=== PATIENT | female | born 1965 | race Caucasian/White ===

== ENCOUNTER → 2020-01-20 14:55 | Outpatient (BNVA) | payer MEDICAID, SELFPAY | PROVIDERS: Family Provider Family Medicine; Visit Provider Nurse Practitioner Psychiatric/Mental Health | DX: F31.64 Bipolar disorder, current episode mixed, severe, with psychotic features (principal); F43.12 Post-traumatic stress disorder, chronic; F41.1 Generalized anxiety disorder | CPT/HCPCS: 99214 ==

== ENCOUNTER → 2020-05-02 08:03 | Outpatient (BNVA) | payer MEDICAID, SELFPAY | PROVIDERS: Family Provider Family Medicine; Visit Provider Nurse Practitioner Psychiatric/Mental Health | DX: F31.64 Bipolar disorder, current episode mixed, severe, with psychotic features (principal); F43.12 Post-traumatic stress disorder, chronic; F41.1 Generalized anxiety disorder | CPT/HCPCS: 99213 ==

== ENCOUNTER → 2020-08-25 17:56 | Outpatient (BNVA) | payer MEDICAID, SELFPAY | PROVIDERS: Family Provider Family Medicine; Visit Provider Emergency Medicine | DX: Z20.828 Contact with and (suspected) exposure to other viral communicable diseases (principal) | CPT/HCPCS: 87635 ==

== ENCOUNTER → 2020-08-28 08:12 | Outpatient (BNVA) | payer MEDICAID, SELFPAY | PROVIDERS: Family Provider Family Medicine; Visit Provider Nurse Practitioner Psychiatric/Mental Health | DX: F31.64 Bipolar disorder, current episode mixed, severe, with psychotic features (principal); F43.12 Post-traumatic stress disorder, chronic; F41.1 Generalized anxiety disorder | CPT/HCPCS: 99213 ==

== ENCOUNTER → 2020-12-26 09:33 | Outpatient (BNVA) | payer MEDICAID, SELFPAY | PROVIDERS: Family Provider Family Medicine; Visit Provider Nurse Practitioner Psychiatric/Mental Health | DX: F31.64 Bipolar disorder, current episode mixed, severe, with psychotic features (principal); F43.12 Post-traumatic stress disorder, chronic; F41.1 Generalized anxiety disorder; Z79.899 Other long term (current) drug therapy | CPT/HCPCS: 99214 ==

== ENCOUNTER → 2021-04-24 08:08 | Outpatient (BNVA) | payer MEDICAID, SELFPAY | PROVIDERS: Family Provider Family Medicine; Visit Provider Nurse Practitioner Psychiatric/Mental Health | DX: F31.64 Bipolar disorder, current episode mixed, severe, with psychotic features (principal); F43.12 Post-traumatic stress disorder, chronic; F41.1 Generalized anxiety disorder; Z79.899 Other long term (current) drug therapy | CPT/HCPCS: 99214 ==

== ENCOUNTER 2021-07-03 10:55 | Emergency (ER) | payer MEDICAID, SELFPAY ==
--- NOTE | 2021-07-03 | CT_ITS ---
WS: [id number] CT PELVIS WITHOUT HISTORY: Bilateral hip pain. TECHNIQUE: Contiguous imaging is performed of the pelvis without contrast. Coronal and sagittal refor mats are reviewed. All CT scans at [facility] use at least one of these dose optimization techniques: automated exposure control; mA and/or kV adjustment per patient size (includes targeted exams where dose is matched to clinical indication); or iterative reconstruction. DLP: 1013.21 mGy.cm COMPARISON: None available. No fractures or osseous destruction of the pelvis. Partial osseous fusion across the posterior LEFT S I joint. No significant erosions along the SI joints. Very mild narrowing of the hip joints. No muscle atrophy. The appendix is visualized and normal. Urinary bladder is well distended. CT/CT pelvis [facility] [id number] IMPRESSION: 1. No significant bone abnormalities or acute fractures within the pelvis. 2. Very mild bilateral hip joint arthritis. 3. No free fluid or adenopathy.
[2021-07-03 11:20] VITALS: BP 126/83; PULSE 69; RESP 18; TEMP 37.3; O2SAT 93; BMI 36.9
--- NOTE | 2021-07-03 12:50 | CT_ITS ---
WS: [id number] CT LUMBAR SPINE, noncontrast. HISTORY: incontinence TECHNIQUE: Contiguous 2.5 mm axial imaging are performed. Sagittal and coronal reformats are submitte d and reviewed. All CT scans at [facility] use at least one of these dose optimization te chniques: automated exposure control; mA and/or kV adjustment per patient size (includes targeted exa ms where dose is matched to clinical indication); or iterative reconstruction. IV contrast: None DLP: 2568.51 mGy.cm COMPARISON: 03/10/2012 Mild curvature lumbar spine. Posterior alignment is normal. Disc spaces and vertebral body heights ar e maintained. No fractures. Endplate osteophytes and facet joint arthritis at all levels. L1-2: Mild annular disc bulging with a shallow LEFT foraminal disc protrusion. No stenosis. Mild bila teral facet arthritis. L2-3: Diffuse annular disc bulging with osteophyte and disc protrusion in the LEFT foramen with very minimal contact on the L2 nerve root. Very mild narrowing the central canal. L3-4: Diffuse asymmetric disc bulging extending greatest to the RIGHT. Osteophyte and disc protrusion in the RIGHT foramen causing moderate stenosis and mild contact on the L3 nerve root. Mild flattenin g of the thecal sac with mild central and RIGHT subarticular stenosis. Mild bilateral facet joint art hritis. L4-5: Diffuse osteophytic ridging with annular disc bulging and moderate facet joint arthritis. Moder ate central stenosis. Disc and osteophyte encroaching into the RIGHT foramen causing moderate RIGHT s ubarticular and RIGHT foraminal stenosis. Bilateral lateral recess stenosis due to facet arthritis. L5-S1: No significant stenosis. Partial fusion across the posterior LEFT SI joint. No osseous destruction. CT/CT lumbar spine wo con* [id number] IMPRESSION: 1. Mild progression of stenoses and disc osteophyte disease since 2011. 2. Moderate central, RIGHT subarticular and RIGHT foraminal stenosis at L4-5 d ue to disc and osteophyte disease. Additional bilateral lateral recess stenosis due to facet joint encroachment. 3. Moderate RIGHT foraminal stenosis at L3-4 with disc osteophyte contact on t he L3 nerve root. Mild central and RIGHT subarticular recess stenosis at L3-4. 4. Mild central and LEFT foraminal stenosis at L2-3.
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
[2021-07-03 14:34] VITALS: BP 131/82; PULSE 65; RESP 18; O2SAT 94
[2021-07-03] MEDS: dexamethasone 10 mg/mL INJ IM (15:04)
[2021-07-03] MEDS: orphenadrine 30 mg/mL Inj 2 mL 60 MG IM (15:05)
[2021-07-03 15:44] VITALS: BP 131/82; PULSE 65; RESP 18; TEMP 37.3; O2SAT 94
--- NOTE | 2021-07-04 13:00 | DCPLANNER ---
assistant purchasing manager had message to get patient established with Dr. Bashir for primary care. assistant purchasing manager called [facility], spoke with Maddison, gave clinic patients information. A follow up appointment was scheduled for Saturday, July 24, 2021 at 10:[address] Bashir. assistant purchasing manager spoke with patient and gave her the appointment information. Patient stated that she would attend the appointment.
--- NOTE | 2021-07-25 13:40 | DCPLANNER ---
Patient had a follow up appointment scheduled for 07.24.[address] Bashir - appointment was cancelled.
== END 2021-07-03 15:46 | disposition home or self-care (01) ==
PROVIDERS: Emergency Provider Nurse Practitioner Family
DX: M54.16 Radiculopathy, lumbar region (principal)
CPT/HCPCS: 72131; 72192; 96372; 99283; J1100; J2360

== ENCOUNTER → 2021-08-22 07:41 | Outpatient (BNVA) | payer MEDICAID, SELFPAY | PROVIDERS: Visit Provider Nurse Practitioner Psychiatric/Mental Health | DX: F31.64 Bipolar disorder, current episode mixed, severe, with psychotic features (principal); F43.12 Post-traumatic stress disorder, chronic; F41.1 Generalized anxiety disorder; Z79.899 Other long term (current) drug therapy | CPT/HCPCS: 99214 ==

== ENCOUNTER → 2021-12-25 08:15 | Outpatient (BNVA) | payer MEDICAID, SELFPAY | PROVIDERS: Visit Provider Nurse Practitioner Psychiatric/Mental Health | DX: F31.64 Bipolar disorder, current episode mixed, severe, with psychotic features (principal); F43.12 Post-traumatic stress disorder, chronic; F41.1 Generalized anxiety disorder | CPT/HCPCS: 99214 ==

== ENCOUNTER → 2022-04-23 07:25 | Outpatient (BNVA) | payer MEDICAID, SELFPAY | PROVIDERS: Visit Provider Nurse Practitioner Psychiatric/Mental Health | DX: F31.64 Bipolar disorder, current episode mixed, severe, with psychotic features (principal); F43.12 Post-traumatic stress disorder, chronic; F41.1 Generalized anxiety disorder; Z79.899 Other long term (current) drug therapy | CPT/HCPCS: 99214 ==

== ENCOUNTER → 2022-09-12 11:58 | Outpatient (BNVA) | payer MEDICAID, SELFPAY | PROVIDERS: Visit Provider Nurse Practitioner Psychiatric/Mental Health | DX: F31.64 Bipolar disorder, current episode mixed, severe, with psychotic features (principal); F43.12 Post-traumatic stress disorder, chronic; F41.1 Generalized anxiety disorder; Z79.899 Other long term (current) drug therapy | CPT/HCPCS: 80053; 80164 ==

== ENCOUNTER → 2024-04-21 15:45 | Outpatient (BNVA) | payer OTHER, SELFPAY | PROVIDERS: Visit Provider Nurse Practitioner Psychiatric/Mental Health | DX: Z79.899 Other long term (current) drug therapy (principal); F31.64 Bipolar disorder, current episode mixed, severe, with psychotic features; F43.12 Post-traumatic stress disorder, chronic; F41.1 Generalized anxiety disorder | CPT/HCPCS: 80053; 80061; 80164; 83036 ==

== ENCOUNTER 2024-04-28 10:43 | Emergency (ER) | payer MEDICAID, SELFPAY ==
[2024-04-28 10:48] VITALS: BP 143/90; PULSE 71; TEMP 36.9; O2SAT 95; BMI 36.0
--- NOTE | 2024-04-28 11:16 | ED_ITS ---
HPI - Skin/Abscess/Foreign Bdy General: Chief complaint: Skin/Abscess/Foreign Body Stated complaint: possible scabies Time Seen by Provider: 04/28/24 10:55 Source: patient Mode of arrival: ambulatory Limitations: no limitations History of Present Illness: 58-year-old female states she has had a rash to her hands and feet and going up her legs here with nonvisual same states she believes she has been exposed to scabies she denies any known bedbugs denies any fevers rashes pruritic Associated symptoms: Deny chills, fever(s), nausea or vomiting Review of Systems Const: Denies: fever(s), chills, body aches or change in appetite Eyes: Denies: blurry vision ENMT: Denies: throat pain or dental pain Card: Denies: chest pain Resp: Denies: dyspnea GI: Denies: abdominal pain, nausea, vomiting or diarrhea Musc: Denies: neck pain or back pain Skin/Breast: Reports: rash Neuro: Denies: headache(s) PFSH ED PFSH: Medical History Psychiatric care Generalized anxiety disorder Chronic post-traumatic stress disorder Bipolar I, most recent episode mixed, severe with psychotic behavior With Somatic delusions of physical health Physical Exam Const: COMMON NORMALS: no acute distress, patient oriented x3 and healthy appearing HENMT: COMMON NORMALS: normocephalic and atraumatic HEAD & SCALP: normocephalic and atraumatic Eye: COMMON NORMALS: conjunctivae normal CONJUNCTIVA: Yes conjunctivae normal Neck/C-Spine: COMMON NORMALS: full ROM and supple Chest: COMMONS NORMALS: normal inspection of the chest Resp: COMMON NORMALS: normal respiratory effort Extremity: COMMON NORMALS: full ROM Neuro: COMMON NORMALS: patient oriented x3, moves all extremities and no focal motor deficits Psych: COMMON NORMALS: mental status grossly normal, Normal thought process present and cooperative THOUGHT PROCESS: Normal thought process present Skin: COMMON NORMALS: no wounds NARRATIVE SKIN EXAM: Rash noted to hands and feet likely scabies Course Vital Signs: Vital signs: Vital Signs Temperature 98.5 F 04/28/24 10:48 Pulse Rate 71 04/28/24 10:48 Blood Pressure 143/90 04/28/24 10:48 Pulse Oximetry 95 04/28/24 10:48 Oxygen Delivery Me thod Room Air 04/28/24 10:48 MDM - Skin/Abscess/Foreign Bdy Medicial Decision Making Patient presents with likely scabies we will treat her with permethrin she stable for discharge follow-up PCP return if worsening No radiology studies performed this visit Discharge Plan Discharge Patient Disposition: Home Clinical Impression: Scabies Condition: Stable Prescriptions: New Elimite 5 % cream 1 applic topical Q14D Qty: 60 0RF Rx Instructions: apply second treatment 14 days after first treatment if live lice remain No Action trazodone 100 mg tablet 100 mg PO BEDTIME PRN (Reason: sleep) Qty: 90 3RF Rx Instructions: Take one tablet at bedtime as needed for sleep propranolol 40 mg tablet 40 mg PO BID Qty: 180 3RF Rx Instructions: Take one tablet twice per day duloxetine [Cymbalta] 60 mg capsule,delayed release(DR/EC) 120 mg PO .morning Qty: 180 3RF Rx Instructions: Take two capsules every morning divalproex [Depakote ER] 500 mg tablet extended release 24 hr 500 mg PO QAM Qty: 90 3RF Rx Instructions: Take one tablet every morning diazepam [Valium] 10 mg tablet 10 mg PO BID PRN (Reason: anxiety) Qty: 60 3RF Rx Instructions: Take one tablet twice per day as needed for anxiety Discharge Orders: Discharge ED (Routine); Ordered 04/28/24 Ordered By: Lyle Joy Discharge Diet: Advance as tolerated Discharge Activity: Resume usual activity Patient Instructions: Scabies (ED) Coding Level of Care Code ED 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
== END 2024-04-28 11:36 | disposition home or self-care (01) ==
PROVIDERS: Emergency Provider Emergency Medicine
DX: B86 Scabies (principal)
CPT/HCPCS: 99283

== ENCOUNTER 2025-03-08 07:18 | Emergency (ER) | payer MEDICAID, SELFPAY ==
[2025-03-08 07:19] VITALS: BP 135/95; PULSE 72; RESP 18; TEMP 36.4; O2SAT 97
--- NOTE | 2025-03-08 07:21 | CT_ITS ---
WS: [id number] CT HEAD NONCONTRAST HISTORY: Trauma TECHNIQUE: Contiguous axial imaging performed through the brain. Bone and soft tissue windows. Sagittal and coronal reformats reviewed. All CT scans at [facility] use at least one of these dose optimization techniques: automated exposure control; mA and/or kV adjustment per patient size (includes targeted exams where dose is matched to clinical indication); or iterative reconstruction. DLP: 1452.24 mGy.cm COMPARISON: 02/17/2015 No acute intracranial hemorrhage, midline shift or mass effect. . Minimal atrophy and small vessel disease. No prior infarct. Ventricles: Normal size with no hydrocephalus. No inferior displacement of the cerebellar tonsils. Paranasal sinuses: As visualized are clear. Mastoid air cells: Well pneumatized. Calvarium and scalp: Hyperostosis frontalis interna. No fracture. Moderate sized high RIGHT parietal scalp hematoma. CT/CT head wo con* [id number] IMPRESSION: 1. No acute intracranial hemorrhage or edema. 2. No skull fracture. 3. No prior infarct. 4. Moderate high RIGHT parietal scalp hematoma.
--- NOTE | 2025-03-08 07:21 | CT_ITS ---
WS: [id number] CT CERVICAL SPINE HISTORY: Trauma TECHNIQUE: Contiguous 2.0 mm axial imaging performed through the entire cervical spine. Sagittal and coronal reformats also performed. All CT scans at [facility] use at least one of these dose optimization techniques: automated exposure control; mA and/or kV adjustment per patient size (includes targeted exams where dose is matched to clinical indication); or iterative reconstruction. DLP: 1452.24 mGy.cm COMPARISON: 01/06/2014 Posterior cervical alignment is normal. Craniocervical junction is normal. Lateral masses of C2 and C1 are aligned. The odontoid process is intact. Mild curvature and scoliosis. Large anterior bridging clawlike osteophytes along the anterior cervical spine. Additional clawlike osteophytes posteriorly at C2-3 and C3-4. Facet joints are normally aligned. Bilateral facet joint arthritis. C2-C3: Posterior osteophyte encroaching upon the ventral thecal sac, facet arthritis. Mild central and LEFT foraminal stenosis. C3-C4: Posterior osteophyte encroaching upon the ventral thecal sac, LEFT greater than RIGHT. Mild central and LEFT foraminal stenosis and facet arthritis. C4-C5: Mild osteophytic ridging and mild foraminal stenosis. C5-C6: Osteophytic ridging. Mild facet arthritis. Mild central and bilateral foraminal stenosis. C6-C7: Osteophytes causing mild foraminal stenosis. C7-T1: Normal. Lung apices are clear. Small bilateral cervical chain lymph nodes. CT/CT cervical spin wo con* [id number] IMPRESSION: 1. No acute cervical spine fracture. 2. Large clot-like bridging osteophytes of the cervical spine. 3. Multilevel areas of central and foraminal stenosis as above.
--- NOTE | 2025-03-08 07:22 | ED_ITS ---
HPI - General Adult 2 General: Chief complaint: Fall Stated complaint: Fall, Hit Head Time Seen by Provider: 03/08/25 07:18 History of Present Illness: 59-year-old female presents emergency ro om via EMS after a fall where she hit her head she is complaining of head and neck pain. She states my brain is pulling away from her brainstem. Patient fell and hit her head at home when she tripped on a rug. There is no loss consciousness no vomiting no vision changes. She does have chronic back pain which seems to have been exacerbated by this fall. Associated symptoms: Reports headache(s); Deny chest pain, dyspnea or rash Related Data Home Medications ?Medication ?Instructions ?Recorded ?Confirmed duloxetine 60 mg capsule,delayed 120 mg PO QAM 5 03/08/25 release (Cymbalta) Previous Rx's ?Medication ?Instructions ?Recorded diazepam 10 mg tablet (Valium) 10 mg PO BID PRN anxiet y #60 tabs 12/31/24 divalproex 500 mg tablet,extended 500 mg PO QAM #90 ta bs 12/31/24 release 24 hr (Depakote ER) propranolol 40 mg tablet 40 mg PO BID #180 tabs 12/31 trazodone 100 mg tablet 100 mg PO BEDTIME PRN sleep #90 12/31/24 tabs diclofenac sodium 75 mg 75 mg PO Q12H PRN pain #20 t abs 03/08/25 tablet,delayed release tizanidine 4 mg tablet 4 mg PO Q6H PRN muscle spast icity 03/08/25 #20 tabs Allergies Allergy/AdvReac Type Severity Reaction Status Date / Time butorphanol (From Stadol) Allergy Unknown Unknown Verified 10/11/24 14:27 codeine Allergy Unknown Unknown Verified 10/11/24 14:27 hydromorphone (From Dilaudid) Allergy Unknown Unknown Verified 10/11/24 14:27 meperidine (From Demerol) Allergy Unknown Unknown Verified 10/11/24 14:27 midazolam (From Versed) Allergy Unknown Unknown Verified 10/11/24 14:27 oxycodone (From OxyContin) Allergy Unknown Unknown Verified 10/11/24 14:27 quetiapine (From Seroquel) Allergy Unknown Unknown Verified 10/11/24 14:27 tetanus immune globulin Allergy Unknown Unknown Verified 10/11/24 14:27 morphine Allergy Unknown Verified 03/08/25 07:26 Opioids - Morphine Analogues Allergy Unknown Verified 03/08/25 07:25 Review of Systems 2 Const: Denies: fever(s) or chills Card: Denies: chest pain Resp: Denies: dyspnea GI: Denies: abdominal pain : Denies: dysuria, urinary frequency or urinary urgency Musc: Reports: neck pain; Denies: back pain Skin/Breast: Denies: rash Neuro: Reports: headache(s) PFSH ED 2 PFSH: Medical History Psychiatric care Generalized anxiety disorder Chronic post-traumatic stress disorder Bipolar I, most recent episode mixed, severe with psychotic behavior With Somatic delusions of physical health Physical Exam 2 Const: GENERAL APPEARANCE: cooperative ORIENTATION/CONSCIOUSNESS: Yes awake, Yes oriented to person, Yes oriented to place and Yes oriented to time HENMT: COMMON NORMALS: normocephalic, atraumatic and hearing grossly normal bilaterally HEAD & SCALP: normocephalic and atraumatic Neck/C-Spine: CERVICAL SPINE: Yes Cervical spine tenderness Resp: COMMON NORMALS: normal respiratory effort, No retractions, No use of accessory muscles and clear to auscultation bilaterally AUSCULTATION: clear to auscultation bilaterally Cardio: COMMON NORMALS: regular rate, regular rhythm and No murmurs present (Cardio) RATE: regular rate RHYTHM: regular rhythm GI: COMMON NORMALS: Soft to palpation and No hepatosplenomegaly present A USCULTATION: Yes normoactive bowel sounds PALPATION: Yes Soft to palpation, No Tenderness to palpation present (GI), No Guarding due to palpation present (GI) and Yes No hepatosplenomegaly present Extremity: COMMON NORMALS: normal to inspection, capillary refill normal, no clubbing, cyanosis or edema, no calf tenderness and no pedal edema Neuro: SENSORIUM/ORIENTATION: Yes oriented to person, Yes oriented to place and Yes oriented to time Skin: OTHER: Neurotic excoriations on the arms at various levels of healing does have some dermatitis lesions between the fingers. Course 2 Vital Signs: Vital signs: Vital Signs Temperature 97.5 F L 03/08/25 07:19 Pulse Rate 72 03/08/25 07:19 Respiratory Rate 18 03/08/25 07:19 Blood Pressure 135/95 03/08/25 07:19 Pulse Oximetry 97 03/08/25 07:19 Oxygen Delivery Me thod Room Air 03/08/25 07:19 MDM - General Adult Medical Decision Making CT does not show any acute fractures of the head or in the spinal column cervical thoracic or lumbar. There is a lot of arthritic changes reviewed with the patient. She asked about being treated for scabies at home believe that what she has represents scabies and there are some neurotic excoriation and some dermatitis between the fingers. Will refer the patient orthopedic spine surgery regarding her chronic back pain she is convinced at this point that she will need surgery to correct it. I discussed her findings with Dr. Badillo who did read this CT scan she did not feel that a emergent MRI was warranted at this time based on the findings there is seem on the CT certainly do not believe 1 is warranted emergently based on the physical exam findings at the bedside. As far as the rash goes encouraged follow-up with her primary care doc and they can refer to dermatology as appropriate Lab Data 03/08/25 07:45 03/08/25 07:45 Radiology Impressions Cervical Spine CT 03/08/25 07:21 IMPRESSION: 1. No acute cervical spine fracture. 2. Large clot-like bridging osteophytes of the cervical spine. 3. Multilevel areas of central and foraminal stenosis as above. Head CT 03/08/25 07:21 IMPRESSION: 1. No acute intracranial hemorrhage or edema. 2. No skull fracture. 3. No prior infarct. 4. Moderate high RIGHT parietal scalp hematoma. Knee X-Ray 03/08/25 07:33 IMPRESSION: No acute findings. Lumbar Spine CT 03/08/25 07:33 IMPRESSION: 1. No acute lumbar spine fracture. Advanced osteoarthritis throughout the lumbar spine. Osteophytosis and facet joint arthritis and disc disease causing stenosis at several levels. Most significant stenosis at L3-4 and L4-5. Minimal progression since 07/03/2021. Thoracic Spine CT 03/08/25 07:33 IMPRESSION: 1. Mild increase in thoracic kyphosis with thoracic vertebral body osteophytosis. 2. No thoracic spine fracture. Laboratory Results WBC 5.36 10^3/uL (3.29-11.43) 03/08/25 07:45 RBC 4.50 10^6/uL (3.85-5.65) 03/08/25 07:45 Hgb 12.70 g/dL (11.27-16.99) 03/08/25 07:45 Hct 40.6 % (36-47) 03/08/25 07:45 MCV 90.2 fl (85-98) 03/08/25 07:45 MCH 28.2 pg (27-33) 03/08/25 07:45 MCHC 31.3 g/dL (30-55) 03/08/25 07:45 RDW 13.8 % (12.1-15.1) 03/08/25 07:45 Plt Count 183 10^3/cmm (157-399) 03/08/25 07:45 MPV 10.8 fL (7.4-10.4) H 03/08/25 07:45 Neut % (Auto) 55.0 % 03/08/25 07:45 Lymph % (Auto) 34.7 % 03/08/25 07:45 [place] % (Auto) 6.9 % 03/08/25 07:45 Eos % (Auto) 2.6 % 03/08/25 07:45 Baso % (Auto) 0.4 % 03/08/25 07:45 Neut # (Auto) 2.95 10^3/uL (1.8-7.7) 03/08/25 07:45 Lymph # (Auto) 1.9 10^3/uL (0.8-4.8) 03/08/25 07:45 [place] # (Auto) 0.4 10^3/uL (0.2-0.9) 03/08/25 07:45 Eos # (Auto) 0.1 10^3/uL (0.0-0.8) 03/08/25 07:45 Baso # (Auto) 0.0 10^3/uL (0.0-0.1) 03/08/25 07:45 Nucleated RBC % (auto) 0 % 03/08/25 07:45 Nucleated RBCs # 0.0 /100WBC 03/08/25 07:45 Sodium 142 mmol/L (136-145) 03/08/25 07:45 Potassium 4.2 mmol/L (3.5-5.1) 03/08/25 07:45 Chloride 101 mmol/L (98-107) 03/08/25 07:45 Carbon Dioxide 31 mmol/L (22-29) H 03/08/25 07:45 Anion Gap 14.2 (5-19) 03/08/25 07:45 BUN 4 mg/dL (6-20) L 03/08/25 07:45 Creatinine 0.5 mg/dL (0.5-0.9) 03/08/25 07:45 GFR Calculation 126.7 mL/min (90-130) 03/08/25 07:45 Glucose 164 mg/dL (65-115) H 03/08/25 07:45 Calculated Osmolality 295 mOsm/kg (285-295) 03/08/25 07:45 Calcium 9.0 mg/dL (8.5-10.5) 03/08/25 07:45 Total Bilirubin 0.3 mg/dL (0.15-1.2) 03/08/25 07:45 AST 31 U/L (0-32) 03/08/25 07:45 ALT 26 U/L (0-33) 03/08/25 07:45 Alkaline Phosphatase 82 U/L (35-105) 03/08/25 07:45 Total Protein 7.2 g/dL (6.6-8.7) 03/08/25 07:45 Albumin 3.6 g/dL (3.5-5.2) 03/08/25 07:45 Globulin 3.6 g/dL (1.3-4.6) 03/08/25 07:45 All radiology interpretation(s) finalized by discharge Discharge Plan Discharge Patient Disposition: Home Clinical Impression: Fall, Chronic neck and back pain Condition: Stable Prescriptions: New tizanidine 4 mg tablet 4 mg PO Q6H PRN (Reason: muscle spasticity) Qty: 20 0RF Rx Instructions: do not exceed 3 doses per 24 hrs diclofenac sodium 75 mg tablet,delayed release (DR/EC) 75 mg PO Q12H PRN (Reason: pain) Qty: 20 0RF No Action diazepam [Valium] 10 mg tablet 10 mg PO BID PRN (Reason: anxiety) Qty: 60 3RF divalproex [Depakote ER] 500 mg tablet extended release 24 hr 500 mg PO QAM Qty: 90 3RF propranolol 40 mg tablet 40 mg PO BID Qty: 180 3RF trazodone 100 mg tablet 100 mg PO BEDTIME PRN (Reason: sleep) Qty: 90 3RF duloxetine [Cymbalta] 60 mg capsule,delayed release(DR/EC) 120 mg PO QAM Discharge Orders: Discharge ED (Routine); Ordered 03/08/25 Ordered By: Hernandez Garcia Discharge Diet: Usual diet Discharge Activity: Increase activity as tolerated Patient Instructions: Opioid Safety, Pain Management Activity Restrictions/Additional Instructions: Thank you for choosing [facility] for your healthcare needs today. It is very important that you follow up as instructed or that you return to the Emergency Department should you have concerns or if your condition changes or worsens in any way. You are seen in the emergency room after a fall CT of your neck thoracic and lumbar spines did not show any new acute fractures. There is a significant amount of arthritic changes that appears unchanged. CT of the head showed a scalp hematoma from when you fell but there is no bleeding inside of the head. Other plain x-rays were also negative. Recommend use of diclofenac and tizanidine as needed for discomfort and follow-up with your primary care doctor. Print Language: Cambodian Coding Level of Care Code ED Emt Paramedic for [place] Cross
--- NOTE | 2025-03-08 07:33 | CT_ITS ---
WS: [id number] CT LUMBAR SPINE, noncontrast. HISTORY: trauma TECHNIQUE: Contiguous 2.0 mm axial imaging are performed. Sagittal and coronal reformats are submitted and reviewed. All CT scans at [facility] use at least one of these dose optimization techniques: automated exposure control; mA and/or kV adjustment per patient size (includes targeted exams where dose is matched to clinical indication); or iterative reconstruction. IV contrast: None DLP: 1478.42 mGy.cm COMPARISON: 07/03/2021 Normal lumbar alignment with no loss of disc space height or vertebral body height. Vertebral body osteophytosis. Marked facet joint arthropathy. L1-2: LEFT paracentral osteophyte with mild encroachment upon the thecal sac. Bilateral facet arthritis. Shallow LEFT foraminal disc protrusion. L2-3: Mild annular disc bulging with osteophytic ridging. LEFT foraminal osteophyte. Mild central and LEFT foraminal stenosis. L3-4: Diffuse osteophytic ridging greatest in the RIGHT foramen. Facet joint arthritis. Mild central stenosis. Moderate to severe RIGHT foraminal stenosis due to osteophyte. L4-5: Osteophytic ridging with severe facet joint arthritis. Asymmetric disc bulging to the RIGHT. Moderate to severe central and RIGHT foraminal stenosis. L5-S1: Marked bilateral facet arthritis. Mild foraminal stenosis. Paravertebral soft tissues are negative. Mild atherosclerosis aorta. CT/CT lumbar spine wo con* [id number] IMPRESSION: 1. No acute lumbar spine fracture. Advanced osteoarthritis throughout the lumb ar spine. Osteophytosis and facet joint arthritis and disc disease causing sten osis at several levels. Most significant stenosis at L3-4 and L4-5. Minimal pro gression since 07/03/2021.
--- NOTE | 2025-03-08 07:33 | XRR_ITS ---
PROCEDURE INFORMATION: Exam: XR Right Knee Exam date and time: 03/08/2025 7:49 AM Age: 59 years old Clinical indication: Injury or trauma; Blunt trauma; Knee; Right; Fall from tripping on a rug and hitting her head on a door. PT C/O neck pain and headache. TECHNIQUE: Imaging protocol: Radiologic exam of the right knee. Views: 3 views. COMPARISON: No relevant prior studies available. FINDINGS: Bones/joints: No fracture or dislocation. No acute osseous, joint, or soft tissue abnormality. Soft tissues: Slight myositis ossificans in the calf. XR/XR knee RT 3V* [id number] IMPRESSION: No acute findings.
--- NOTE | 2025-03-08 07:33 | CT_ITS ---
WS: [id number] CT THORACIC SPINE HISTORY: trauma TECHNIQUE: Contiguous 2.0 mm axial images are reviewed to thoracic spine. Images are reformatted in sagittal and coronal planes. All CT scans at [facility] use at least one of these dose optimization techniques: automated exposure control; mA and/or kV adjustment per patient size (includes targeted exams where dose is matched to clinical indication); or iterative reconstruction. DLP: 1478.42 mGy.cm COMPARISON: None available. Mild increase in thoracic kyphosis. Anterior bridging osteophytes throughout the mid and upper cervical spine. No fractures are identified along the osteophytic bridging. Vertebral body heights are preserved. Facet joints are narrowed and partially fused throughout the thoracic spine. No acute apparent disc protrusions. No high-grade central stenosis. There is mild encroachment upon the posterior thoracic spine by facet joint arthritis. No adrenal mass. Paraspinal soft tissues are negative. CT/CT thoracic spin wo con* [id number] IMPRESSION: 1. Mild increase in thoracic kyphosis with thoracic vertebral body osteophytos is. 2. No thoracic spine fracture.
[2025-03-08 07:56] LABS: Basophils % 0.4 %; Eosinophils # 0.1 10^3/uL (0.0-0.8); Eosinophils % 2.6 %; Hematocrit 40.6 % (36-47); Lymphocytes # 1.9 10^3/uL (0.8-4.8); Lymphocytes % 34.7 %; Mean Corpuscular HGB Conc 31.3 g/dL (30-55); Mean Corpuscular Hemoglobin 28.2 pg (27-33); Mean Corpuscular Volume 90.2 fl (85-98); Mean Platelet Volume 10.8 fL (7.4-10.4); Monocytes # 0.4 10^3/uL (0.2-0.9); Monocytes % 6.9 %; Neutrophils # 2.95 10^3/uL (1.8-7.7); Nucleated Red Blood Cells % 0 %; Platelet Count 183 10^3/cmm (157-399); Red Cell Distribution Width 13.8 % (12.1-15.1); White Blood Count 5.36 10^3/uL (3.29-11.43)
[2025-03-08 08:16] LABS: Alanine Aminotransferase 26 U/L (0-33); Albumin Level 3.6 g/dL (3.5-5.2); Alkaline Phosphatase 82 U/L (35-105); Anion Gap 14.2 (5-19); Aspartate Amino Transferase 31 U/L (0-32); Blood Urea Nitrogen 4 mg/dL (6-20); Carbon Dioxide 31 mmol/L (22-29); Chloride 101 mmol/L (98-107); Creatinine Clr Calc Pharmacy 161.2099; Globulin 3.6 g/dL (1.3-4.6); Glomerular Filtration Rate 126.7 mL/min (90-130); Glucose 164 mg/dL (65-115); Osmolality Calculated 295 mOsm/kg (285-295); Potassium 4.2 mmol/L (3.5-5.1); Sodium 142 mmol/L (136-145); Total Bilirubin 0.3 mg/dL (0.15-1.2); Total Protein 7.2 g/dL (6.6-8.7)
--- NOTE | 2025-03-09 07:54 | DCPLANNER ---
Message sent to Ortho Spine- CT does not show any acute fractures of the head or in the spinal column cervical thoracic or lumbar. There is a lot of arthritic changes reviewed with the patient. She asked about being treated for scabies at home believe that what she has represents scabies and there are some neurotic excoriation and some dermatitis between the fingers. Will refer the patient orthopedic spine surgery regarding her chronic back pain she is convinced at this point that she will need surgery to correct it. I discussed her findings with Dr. Badillo who did read this CT scan she did not feel that a emergent MRI was warranted at this time based on the findings there is seem on the CT certainly do not believe 1 is warranted emergently based on the physical exam findings at the bedside. As far as the rash goes encouraged follow-up with her primary care doc and they can refer to dermatology as appropriate
--- NOTE | 2025-03-10 07:43 | DCPLANNER ---
messaged [facility] to establish PCP
== END 2025-03-08 11:05 | disposition home or self-care (01) ==
PROVIDERS: Emergency Provider Family Medicine
DX: M54.2 Cervicalgia (principal); M54.9 Dorsalgia, unspecified; W19.XXXA Unspecified fall, initial encounter; R51.9 Headache, unspecified
CPT/HCPCS: 36415; 70450; 72125; 72128; 72131; 73562; 80053; 85025; 99284

== ENCOUNTER → 2025-04-05 09:03 | Outpatient (BNVA) | payer OTHER, SELFPAY | PROVIDERS: PCP Family Medicine; Visit Provider Nurse Practitioner Psychiatric/Mental Health | DX: Z79.899 Other long term (current) drug therapy (principal) | CPT/HCPCS: 80061; 80164; 83036 ==